=== PATIENT | female | born 1975 | race American Indian/Alaskan Native ===

== ENCOUNTER 2021-02-10 14:17 | Emergency (ER) | payer BC ==
--- NOTE | 2021-02-10 14:48 | Emergency Department Report ---
ED Back Pain/Injury HPI - General Chief Complaint: Back Pain/Injury Stated Complaint: BACK PAIN Time Seen by Provider: 02/10/21 14:36 Source: patient Limitations: No Limitations - History of Present Illness Initial Comments: Patient presents with a couple of day history of back pain. She describes lumbar pain that radiates down the left leg. Is an aching pain. It is worse wi th movement. There is no trauma. She has had no fevers or chills per there is no cough congestion. She has had no numbness or tingling in the arms or legs. She has never had a problem like this before. Patient denies any other complaints. She states that she is taken [id number] medication without symptomatic improvement. She decided to come here for evaluation. Patient has no saddle anesthesia. There is no incontinence of bowel or bladder. Patient denies fevers or chills or dysuria or hematuria. Pain is a constant ache that is worse with movement. - Related Data Previous Rx's Medication Instructions Recorded Last Taken Type Ibuprofen [Motrin] 600 mg PO Q8H PRN #30 tablet 02/10/21 Unknown Rx Lidocaine [Lidoderm] 1 each TP DAILY #30 adh..patch 02/10/21 Unknown Rx Metaxalone [Skelaxin] 800 mg PO TID #6 tablet 02/10/21 Unknown Rx ED Review of Systems ROS: Stated complaint: BACK PAIN Other details as noted in HPI Comment: All other systems reviewed and negative Constitutional: denies: fever Eyes: denies: vision change ENT: denies: throat pain Respiratory: denies: cough Cardiovascular: denies: chest pain Endocrine: denies: unexplained weight loss Gastrointestinal: denies: abdominal pain Genitourinary: denies: dysuria Musculoskeletal: as per HPI Skin: denies: rash Neurological: denies: numbness, paresthesias Hematological/Lymphatic: denies: easy bruising ED Past Medical Hx - Past Medical History Previous Medical History?: No - Surgical History Past Surgical History?: No - Family History Family history: no significant - Medications Home Medications: Home Medications Medication Instructions Recorded Confirmed Last Taken Type Ibuprofen [Motrin] 600 mg PO Q8H PRN #30 tablet 02/10/21 Unknown Rx Lidocaine [Lidoderm] 1 each TP DAILY #30 adh..patch 02/10/21 Unknown Rx Metaxalone [Skelaxin] 800 mg PO TID #6 tablet 02/10/21 Unknown Rx ED Physical Exam - General Limitations: No Limitations, Other (Pulse ox noted and normal) General appearance: alert, in no apparent distress, obese - Head Head exam: Present: atraumatic, normocephalic, normal inspection - Eye Eye exam: Present: normal appearance, EOMI. Absent: scleral icterus - ENT ENT exam: Present: normal exam, normal external ear exam - Neck Neck exam: Present: normal inspection. Absent: meningismus - Respiratory Respiratory exam: Present: normal lung sounds bilaterally. Absent: respiratory distress - Cardiovascular Cardiovascular Exam: Present: regular rate, normal rhythm - GI/Abdominal GI/Abdominal exam: Present: soft. Absent: tenderness - Extremities Exam Extremities exam: Present: normal capillary refill - Back Exam Back exam: Present: paraspinal tenderness (Lumbar). Absent: CVA tenderness (R), CVA tenderness (L) - Neurological Exam Neurological exam: Present: alert, oriented X3, CN II-XII intact, normal gait, reflexes normal, other (Negative straight leg raise). Absent: motor sensory deficit - Psychiatric Psychiatric exam: Present: normal affect, normal mood - Skin Skin exam: Present: warm, dry ED Course - Reevaluation(s) Reevaluation #1: 02/10/21 14:47 Patient was discharged. Old records noted. ED Medical Decision Making - Medical Decision Making Patient presents with back pain and lumbar radiculopathy. There is no trauma to suggest acute fracture. She has no neurologic symptom or deficit suggestive of cord injury or cauda equina. She does not use IV drugs. There is no fever. Again, I am not concerned for epidural abscess. This is unlikely to be epidural hematoma given the absence of trauma and absence of anticoagulation. Patient was treated symptomatically and referred for outpatient evaluation and follow- up. Critical Care Time: No Critical care attestation.: If time is entered above; I have spent that time in minutes in the direct care of this critically ill patient, excluding procedure time. ED Disposition Clinical Impression: Lumbar pain, Left sided sciatica Disposition: 01 HOME / SELF CARE / HOMELESS Is pt being admited?: No Condition: Stable Instructions: Radicular Pain, Sciatica Additional Instructions: Limit lifting today and tomorrow. Use ice today and tomorrow. Follow-up with your regular doctor. Return for problems. If you do not have a regular doctor, follow-up with the referral physician. Prescriptions: Lidocaine [Lidoderm] 1 each TP DAILY #30 adh..patch Ibuprofen [Motrin] 600 mg PO Q8H PRN #30 tablet PRN Reason: Pain Metaxalone [Skelaxin] 800 mg PO TID #6 tablet Referrals: PRIMARY CAREMD [Referring] - 3-5 Days DAWSON CEDEÑO MD [Staff Physician] - 3-5 Days
== END 2021-02-10 15:00 | disposition home or self-care (01) ==
LOC: ED 14:17
DX: M54.42 Lumbago with sciatica, left side (principal); Z79.899 Other long term (current) drug therapy
CPT/HCPCS: 99281